=== PATIENT | male | born 1980 | race Caucasian/White ===

== ENCOUNTER 2017-09-11 11:21 | Emergency (ER) | payer BC ==
[2017-09-11 11:58] VITALS: BP 145/102
--- NOTE | 2017-09-11 12:26 | UC ---
General HPI - HPI Summary HPI Summary: 37 yo WM h/o HTN and JUAN c/o casual sexual encounter 1 month ago, unprotected and recently was informed that that sexual partner had genital herpes but failed to inform him so pt is here to get ALL STD testing done today. Last one he had was in 2011, and was neg. Denies any abnormal d/c or genitourinary sx - History of Current Complaint Chief Complaint: UCSTDScreening Stated Complaint: PERSONAL Time Seen by Provider: 09/11/17 11:50 Hx Obtained From: Patient Onset/Duration: Other Timing: Constant Pain Intensity: 0 - Allergy/Home Medications Allergies/Adverse Reactions: Allergies Allergy/AdvReac Type Severity Reaction Status Date / Time No Known Allergies Allergy Verified 09/11/17 11:56 Home Medications: Home Medications NK [No Home Medications Reported] 09/11/17 [History Confirmed 09/11/17] PMH/Surg Hx/FS Hx/Imm Hx Previously Healthy: Yes Cardiovascular History: Hypertension Respiratory History: Other - JUAN Other Respiratory History: JUAN - Surgical History Surgical History: Yes Surgery Procedure, Year, and Place: Back surgery. Oral surgery - Social History Alcohol Use: Weekly Substance Use Type: None Smoking Status (MU): Light Every Day Tobacco Smoker Length of Time of Smoking/Using Tobacco: 05/08 ppd Review of Systems Constitutional: Negative Skin: Negative Eyes: Negative ENT: Negative Respiratory: Negative Cardiovascular: Negative Gastrointestinal: Negative Genitourinary: Negative, Other - NEED STD testing Motor: Negative Neurovascular: Negative Musculoskeletal: Negative Neurological: Negative Psychological: Negative All Other Systems Reviewed And Are Negative: Yes Physical Exam Triage Information Reviewed: Yes Appearance: Obese Vital Signs: Initial Vital Signs Temp 36.8 C 09/11/17 11:49 Pulse 102 09/11/17 11:49 Resp 14 09/11/17 11:49 BP 145/102 09/11/17 11:49 Pulse Ox 97 09/11/17 11:49 Eye Exam: Normal ENT Exam: Normal Dental Exam: Normal Neck exam: Normal Neck: Positive: 1 Respiratory Exam: Normal Cardiovascular Exam: Normal Abdominal Exam: Normal Musculoskeletal Exam: Normal Neurological Exam: Normal Psychological Exam: Normal Skin Exam: Normal Course/Dx - Differential Dx - Multi-Symptom Provider Diagnoses: STD testing. exposure to STD Discharge - Sign-Out/Discharge Documenting (check all that apply): Discharge/Admit/Transfer - Discharge Plan Condition: Stable Disposition: HOME Patient Education Materials: Sexually Transmitted Diseases (ED), Condom Use (ED ), Safe Sex (ED) Additional Instructions: please call within one week for results - Billing Disposition and Condition Condition: STABLE Disposition: HOME
[2017-09-13 15:36] LABS: Herpes Simplex Virus II IgG AB Negative (Negative)
== END 2017-09-11 12:49 | disposition home or self-care (01) ==
LOC: UCCORT 11:21
DX: Z20.2 Contact with and (suspected) exposure to infections with a predominantly sexual mode of transmission (principal); I10 Essential (primary) hypertension
CPT/HCPCS: 36415; 80074; 86592; 86694; 86695; 86696; 86703; 87491; 87591; 99201; G0463